=== PATIENT | female | born 1985 | race Caucasian/White ===

== ENCOUNTER 2020-09-22 23:23 | Inpatient (IN) | payer SELFPAY ==
--- NOTE | 2020-09-22 23:31 | W.ED.PSYCH ---
HPI - Psych General: Stated Complaint: ETOH Time Seen by Provider: 09/22/20 23:25 Source: patient Mode of arrival: ambulatory Limitations: no limitations History of Present Illness: HPI Narrative: 35-year-old female is brought in by police for suicidal ideation. Patient was pulled over tonight driving drunk and she did have her kids in the vehicle as well. While police was booking her she became very agitated and was throwing chairs she also stated multiple times she want to kill her self and she told the senior cytotechnologist that she wanted her to shoot her. Patient states that she did make the statements and she is suicidal. No previous suicidal attempts in the past. She denies any recent drug use. Associated symptoms: Reports suicidal ideation Review of Systems Const: Denies: fever(s), chills, body aches or change in appetite Eyes: Denies: blurry vision or eye discomfort ENMT: Denies: throat pain or dental pain Card: Denies: chest pain Resp: Denies: dyspnea GI: Denies: abdominal pain, nausea, vomiting or diarrhea : Denies: dysuria Musc: Denies: neck pain or back pain Skin/Breast: Denies: rash Neuro: Denies: headache(s) Psych: Reports: anxiety and suicidal ideation Kevin/Lymph: Denies: easy bruising All/Imm: Denies: urticaria Physical Exam Const: COMMON NORMALS: no acute distress, patient oriented x3 and healthy appearing HENMT: COMMON NORMALS: normocephalic and atraumatic HEAD & SCALP: normocephalic and atraumatic Eye: COMMON NORMALS: Equal, round and reactive pupils present and EOMs intact bilaterally PUPIL: Yes Equal, round and reactive pupils present Neck/C-Spine: COMMON NORMALS: full ROM and supple Chest: COMMONS NORMALS: normal inspection of the chest and normal palpation of entire chest wall Resp: COMMON NORMALS: normal respiratory effort, No retractions, No use of accessory muscles and clear to auscultation bilaterally AUSCULTATION: clear to auscultation bilaterally Cardio: COMMON NORMALS: regular rate, regular rhythm and No murmurs present (Cardio) RATE: regular rate RHYTHM: regular rhythm GI: COMMON NORMALS: Normal to inspection, nondistended, normoactive bowel sounds present, Soft to palpation, non-tender and no masses PALPATION: Yes Soft to palpation Extremity: COMMON NORMALS: normal to inspection and full ROM Neuro: COMMON NORMALS: patient oriented x3, moves all extremities and no focal motor deficits Psych: COMMON NORMALS: mental status grossly normal, Normal thought process present and cooperative THOUGHT PROCESS: Normal thought process present THOUGHT CONTENT: Yes Suicidality present Skin: COMMON NORMALS: no rashes or lesions noted and no wounds GENERAL SKIN EXAM: no rashes or lesions noted MDM - Psych MDM Narrative: Medical decision making narrative: Patient presents here with suicidal ideation and placed under 96-hour hold. She also admits intoxicated. Patient's blood work here is normal and she is medically cleared I spoke to psychiatrist who will admit. Lab Data: Labs: Lab Results 09/23/20 09/23/20 Range/Units 00:15 00:15 WBC 12.5 H (4.0-10.0) 10^3/ uL RBC 5.00 (4.1-5.3) 10^6/u L Hgb 16.5 H (11.5-15.3) g/dL Hct 48.9 H (37.0-47.0) % MCV 97.8 (81-99) fL MCH 33.0 (28.0-34.0) pg MCHC 33.7 (30.0-36.0) g/dL RDW 13.4 (12.1-15.1) % Plt Count 269 (130-400) 10^3/c mm MPV 9.7 (7.4-10.4) fL Neut % (Auto) 57.8 % Lymph % (Auto) 34.6 % Menard % (Auto) 5.4 % Eos % (Auto) 1.3 % Baso % (Auto) 0.6 % Neut # (Auto) 7.21 (1.8-7.7) 10^3/u L Lymph # (Auto) 4.3 (0.8-4.8) 10^3/u L Menard # (Auto) 0.7 (0.2-0.9) 10^3/u L Eos # (Auto) 0.2 (0.0-0.8) 10^3/u L Baso # (Auto) 0.1 (0.0-0.1) 10^3/u L Nucleated RBC % (a uto) 0 % Nucleated RBCs # 0.0 /100WBC Sodium 142 (136-145) mmol/L Potassium 4.0 (3.5-5.1) mmol/L Chloride 107 (98-107) mmol/L Carbon Dioxide 19 L (22-29) mmol/L Anion Gap 20.0 H (5-19) BUN 8 (6-20) mg/dL Creatinine 0.5 (0.5-0.9) mg/dL GFR Calculation 140.4 H (90-130) mL/min Glucose 106 (65-115) mg/dL Calculated Osmolal ity 293 (285-295) mOsm/k g Calcium 8.6 (8.5-10.5) mg/dL Total Bilirubin 0.2 (0.15-1.2) mg/dL AST 16 (0-32) U/L ALT 10 (0-33) U/L Alkaline Phosphata se 83 (35-105) IU/L Total Protein 7.5 (6.6-8.7) g/dL Albumin 4.9 (3.5-5.2) g/dL Globulin 2.6 (1.3-4.6) g/dL Salicylates < 0.3 L (3-10) mg/dL Acetaminophen < 5.0 L (10-30) ug/mL Ethyl Alcohol 194 H (0-10) mg/dL Discharge Plan Discharge Patient Disposition: Admitted As Inpatient Clinical Impression: Suicidal ideation, Alcohol intoxication Condition: Stable Coding Level of Care Code ED Manager [employer] for Lesly Fwd Exam Comprehensive
[2020-09-23 00:26] LABS: Basophils # 0.1 10^3/uL (0.0-0.1); Basophils % 0.6 %; Eosinophils # 0.2 10^3/uL (0.0-0.8); Eosinophils % 1.3 %; Hematocrit 48.9 % (37.0-47.0); Hemoglobin 16.5 g/dL (11.5-15.3); Lymphocytes # 4.3 10^3/uL (0.8-4.8); Lymphocytes % 34.6 %; Mean Corpuscular HGB Conc 33.7 g/dL (30.0-36.0); Mean Corpuscular Volume 97.8 fL (81-99); Mean Platelet Volume 9.7 fL (7.4-10.4); Monocytes # 0.7 10^3/uL (0.2-0.9); Monocytes % 5.4 %; Neutrophils # 7.21 10^3/uL (1.8-7.7); Neutrophils % 57.8 %; Nucleated Red Blood Cells % 0 %; Platelet Count 269 10^3/cmm (130-400); Red Cell Distribution Width 13.4 % (12.1-15.1); White Blood Count 12.5 10^3/uL (4.0-10.0)
[2020-09-23 00:41] LABS: Alanine Aminotransferase 10 U/L (0-33); Albumin Level 4.9 g/dL (3.5-5.2); Alcohol Level 194 mg/dL (0-10); Alkaline Phosphatase 83 IU/L (35-105); Aspartate Amino Transferase 16 U/L (0-32); Blood Urea Nitrogen 8 mg/dL (6-20); Calcium 8.6 mg/dL (8.5-10.5); Carbon Dioxide 19 mmol/L (22-29); Chloride 107 mmol/L (98-107); Globulin 2.6 g/dL (1.3-4.6); Glomerular Filtration Rate 140.4 mL/min (90-130); Glucose 106 mg/dL (65-115); Osmolality Calculated 293 mOsm/kg (285-295); Sodium 142 mmol/L (136-145); Total Bilirubin 0.2 mg/dL (0.15-1.2); Total Protein 7.5 g/dL (6.6-8.7)
[2020-09-23 00:42] LABS: Acetaminophen < 5.0 ug/mL (10-30); Salicylate < 0.3 mg/dL (3-10)
[2020-09-23 00:51] VITALS: BP 100/67; PULSE 76; RESP 16; TEMP 36.6; O2SAT 98; BMI 20.1
[2020-09-23 01:28] LABS: HCG Qualitative Urine. Negative (Negative)
[2020-09-23 01:46] VITALS: BP 100/67; PULSE 76; RESP 16; TEMP 36.6; O2SAT 98
[2020-09-23 02:07] LABS: Amphetamines Screen Urine Negative (Negative); Barbiturates Screen Urine Negative (Negative); Benzodiazepines Screen Urine Negative (Negative); Cocaine Screen Urine Negative (Negative); Opiate Screen Urine Negative (Negative); PCP Screen Urine Negative (Negative); THC Screen Urine Positive (Negative)
--- NOTE | 2020-09-23 05:07 | PC.NURSE ---
35/F Bal 194/ DOA THC+ v/s are WNL, pt denies HI, Endorses SI-no plan, Depressed, Tearful, Denies AH/VH, states, ?I was drinking.? Heart and Lung Sounds are normal,. Denies pain. Per Officer report, pt was driving drunk at [facility] in [place], [place] with her child in the car. She was cited receiving a DWI at scene and charged with endangering her child. The child was removed from her care on scene, and patient was taken to the residential. Pt became depressed, said she wanted to be shot by the officer, that ?her life was over?, pt stated to officer, if I released her that she ?would kill herself since she lost her kids to stated custody,? and then was witnessed running her head into the concrete tucker in an attempt to harm herself. Pt became angry and began to act out in the residential by throwing chairs. Pt has a hx of Bipolar disorder, anxiety, non-compliant with medication, with alcohol abuse history. Pt arrived at the ED, refused to answer questions for the staff, and was placed on 96 hr hold. Pt was quiet, tearful, depressed, and angry on arrival. She refused to sign her admission paperwork, curled up on the bed, stated ?my life is over, I?m fucked. I went to go get milk for my kids. I knew I should not have driven, omg, I?m so fucking stupid, I have lost everything. Go ahead, keep me forever, I won?t do this again.? Staff attempted to de-escalated the patient, pt continued to cry, explaining to staff, ?I lost my kids to state before and I will never get them back.? She has a son who turns 10 years old on 09/25/20 and a daughter age 13. Her children?s father is in treatment program in [facility], some ?kind of ministry.? Pt is refusing to sign admission paperwork, discuss any options to be pro-active in her care, and is resistant to any interaction with staff. Pt would benefit from social work intervention.
[2020-09-23 06:00] VITALS: BP 103/75; PULSE 60; RESP 19; TEMP 36.6; O2SAT 98
[2020-09-23] MEDS: folic acid 1 mg Tablet PO (08:56)
[2020-09-23] MEDS: multivitamin therapeutic Tablet 1 TAB PO (08:56)
[2020-09-23] MEDS: thiamine 100 mg Tablet PO (08:56)
--- NOTE | 2020-09-23 12:16 | XR_ITS ---
WS: [id number] Right wrist, 3 views, 09/23/2020 Clinical Data: swelling from handcuffs, previous hardware Comparison: None. Findings: No new fractures or dislocations are seen. The carpal bones are intact. There is no soft tissue swell ing. There is a ventral plate applied to the distal right radius with multiple orthopedic screws redu cing an old distal radial fracture. There is an unfused right ulnar styloid fracture. XR/XR wrist RT min 3V* [id number] Impression: Negative for acute change of the right wrist.
--- NOTE | 2020-09-23 12:17 | PM.NHP ---
Providers/Chief Complaint Admitting Physician: Doreen Sorto DO Chief Complaint: ETOH HPI NPU History of Present Illness Camila Muir is a 35 year old female with a remote history of anxiety although reports lifelong excessive worry and difficulty controlling her worrying presented to the emergency department with alcohol intoxication by police after DUI in which she had a child in the car and reported CPS intervention. Patient presented to the emergency department with suicidal ideation. Patient states that she recalls going to detention as well as coming to the hospital but did not recall events to include saying that she was suicidal. Patient currently denying any suicidal ideation and denying any depressive symptoms but reports intermittent mood symptoms in the context of multiple ongoing life stressors to include her recently entering substance treatment. Patient does report ongoing excessive worry and difficulty controlling her worrying to include racing thoughts which is alleviated by alcohol use. Patient reports that yesterday was the first alcohol use in a week but states that she had been drinking on a daily basis for approximately a month a month ago secondary to ongoing home stressors. She denies any past or recent hypomanic or manic episodes. She denies any past or recent psychotic symptoms. Patient reports intermittent use of marijuana when she can afford it but states that she does not use on a regular basis and denies use of any other illicit drugs. Psychiatric review of systems is otherwise negative. Patient reports additional stressors of being single parent while her is at treatment. Review of Systems General: Reports: 10 or more systems reviewed and unremarkable except in HPI and below Meds NPU Home Medications Medication Instructions Recorded Confirmed Last Taken Type No Known Home Medications 09/23/20 09/23/20 Unknown History Allergies Allergy/AdvReac Type Severity Reaction Status Date / Time No Known Allergies Allergy Verified 09/23/20 05:09 PFS NPU PFSH: Social History Alcohol intake: current Alcohol type: hard liquor Desire information about alcohol rehabilitation?: No Counseling given: Yes (resistant ) Last alcohol use date: 09/22/20 Other details last alcohol use: DWI, drove with child in car-CPS removed child Substance/Drug Use: current Substance/Drug use type: Marijuana Desire information about substance/drug rehabilitation?: No Counseling given: No (resistant) Adopted: No Lives independently: Yes Household members: significant other and children Marital status: Life Partner (sig. other in treatment program) Number of children: 2 (son age 10 and daugher age 13) Highest education level completed: High School Graduate service: No Current occupational status: employed Current occupation: works at a resort Current occupational exposures/hazards: No Pets and animals: No History of recent travel: No Current gender identity: Female Special rosemary needs: No Agree to transfusion: Yes Financial difficulty paying for basics: Very Hard Additional social history: Charged with DWI on 09/22/20 by [facility], driving intoxicated with her child in car, CPS intervention, charged with endangerment, child in state care. Pt is SI, Hx of Bipolar Disorder, alcohol use, and non-compliance with medication. Other Psychiatric History: Other Psychiatric History: Per above, remote history of mental health treatment around the age of 11 and states that she was seen on a couple of other occasions by primary care during her teens and briefly treated with Xanax for anxiety Denies any past psychiatric hospitalizations Denies any history of suicide attempts or self-harm behavior Mental Status Exam MSE Comments: Appears older than stated age, initially lying down but eventually sits up for interview, calm, cooperative, interactive, polite, good eye contact, appropriately groomed and dressed wearing hospital scrubs Psychomotor activity is somewhat decreased, no agitation Speech is soft volume, normal rate, spontaneous, clear articulation, not pressured I feel upset and stressed, congruent affect, constricted, not labile Alert and oriented to person, place, time Memory and concentration are fair for recent events, good for remote events per interview Intellectual functioning appears to be average based on vocabulary, interview Thought process, linear, no flight of ideas, no looseness of associations Thought content, no delusions, no hallucinations, no suicidal or homicidal ideation Insight and judgment appear to be fair Vitals/I&O/Wt Last Vital Signs Temp 97.9 F 09/23/20 06:00 Pulse 60 09/23/20 06:00 Resp 19 H 09/23/20 06:00 BP 103/75 09/23/20 06:00 Pulse Ox 98 09/23/20 06:00 Weight last 48 hrs Weight 56.699 kg Data NPU : 09/23/20 00:15 09/23/20 00:15 A&P Assessment and plan (1) Suicidal ideation: Status: Acute (2) Alcohol intoxication: Status: Acute Qualifiers: Complication of substance-induced condition: uncomplicated Qualified Code(s): F10.920 - Alcohol use, unspecified with intoxication, uncomplicated (3) Anxiety disorder: Status: Acute Qualifiers: Anxiety disorder type: unspecified anxiety disorder Qualified Code(s): F41.9 - Anxiety disorder, unspecified Additional A&P Information Patient presented to the hospital with DUI with child in her car reporting that she was suicidal at the time that she had gone to detention with subsequent trip to the emergency department with continued endorsement of suicidal ideation currently denying any suicidal ideation and denies any recent depressed symptoms although reports intermittent mood symptoms related to ongoing stressors to include leaving to go to treatment recently. Patient with daily alcohol use and reported anxiety symptoms with no treatment for approximately 20+ years. INVOLUNTARY ADMIT to inpatient psychiatry START citalopram 20 mg daily targeting anxiety symptoms 3 view x-ray of right wrist Encouraged patient to participate in unit activities to include group sessions, unit milieu Coordinate with social media marketing analyst for post discharge mental health care follow-up to include substance counseling/treatment for ongoing alcohol use Involuntary Hold Information 96 Hour Hold: 96 Hour Involuntary Admission: Yes 96 Hour Hold Ending Date: 09/28/20 96 Hour Hold Ending Time: 23:54 Attestations NPU Medical Necessity Statement*: Psychiatric hospitalization indicated for medication stabilization, coordination for safe discharge Anticipate hospital stay to exceed 2 midnights Time Spent in Patient Care: Greater than 35 minutes (>than 50% of time spent in counselling and/or direct pt care on unit). Coding Level of Care Code Acute Bacteriologist Pharmaceutical for Lesly Schmidt Diagnoses Suicidal ideation R45.851 Alcohol intoxication F10.920 Complication of substance-induced condition: uncomplicated Anxiety disorder F41.9 Anxiety disorder type: unspecified anxiety disorder
[2020-09-23] MEDS: citalopram 20 mg Tablet PO (12:27)
[2020-09-23 14:00] VITALS: BP 105/70; PULSE 60; RESP 16; TEMP 36.6; O2SAT 98
[2020-09-23 21:38] VITALS: BP 112/71; PULSE 85; RESP 16; TEMP 36.9; O2SAT 98
[2020-09-24 06:00] VITALS: BP 90/51; PULSE 75; RESP 17; TEMP 36.6; O2SAT 98
[2020-09-24] MEDS: citalopram 20 mg Tablet PO (08:44)
[2020-09-24] MEDS: folic acid 1 mg Tablet PO (08:44)
[2020-09-24] MEDS: thiamine 100 mg Tablet PO (08:44)
[2020-09-24] MEDS: multivitamin therapeutic Tablet 1 TAB PO (08:44)
[2020-09-24 14:00] VITALS: BP 127/88; PULSE 80; RESP 14; TEMP 37.9; O2SAT 96
--- NOTE | 2020-09-24 14:27 | PM.NPN ---
Subjective NPU Subjective: Interval history: Reports some depressive symptoms which is exacerbated by ongoing stressors Denies any interval suicidal ideation Denies any interval psychotic symptoms Reports some stress related anxiety Denies any interval withdrawal symptoms Reports being compliant with medication, denies any medication side effects Mental Status Exam MSE Comments: Sitting up in her bed, appropriately groomed and dressed wearing scrubs, calm, cooperative, good eye contact Psychomotor activity is somewhat decreased, no agitation Speech is soft volume, normal rate, spontaneous, clear articulation, not pressured I feel okay, congruent affect, constricted, not labile Alert and oriented to person, place, time Memory and concentration are fair to intact per interview Thought process, linear, no flight of ideas, no looseness of associations Thought content, no delusions, no hallucinations, no suicidal or homicidal ideation Insight and judgment appear to be fair Vitals/I&O/Wt Last Vital Signs Temp 97.9 F 09/24/20 06:00 Pulse 75 09/24/20 06:00 Resp 17 09/24/20 06:00 BP 90/51 09/24/20 06:00 Pulse Ox 98 09/24/20 06:00 Weight last 48 hrs Weight 56.699 kg Data NPU : 09/23/20 00:15 09/23/20 00:15 A&P Assessment and plan (1) Suicidal ideation: Status: Acute (2) Anxiety disorder: Status: Acute Qualifiers: Anxiety disorder type: unspecified anxiety disorder Qualified Code(s): F41.9 - Anxiety disorder, unspecified (3) Alcohol intoxication: Status: Acute Qualifiers: Complication of substance-induced condition: uncomplicated Qualified Code(s): F10.920 - Alcohol use, unspecified with intoxication, uncomplicated Additional A&P Information Intermittent mood symptoms, no interval alcohol withdrawal symptoms CONTINUE current medication, continue to monitor Continue coordination with social research assistant for post discharge alcohol counseling/treatment Involuntary Hold Information 96 Hour Hold: 96 Hour Involuntary Admission: Yes 96 Hour Hold Ending Date: 09/28/20 96 Hour Hold Ending Time: 23:54 Attestations NPU Medical Necessity Statement*: Continues to require psychiatric hospitalization for medication stabilization Coding Level of Care Code Acute Mental Health Associate for [facility] Fwjo Diagnoses Suicidal ideation R45.851 Anxiety disorder F41.9 Anxiety disorder type: unspecified anxiety disorder Alcohol intoxication F10.920 Complication of substance-induced condition: uncomplicated
[2020-09-24 22:00] VITALS: BP 130/72; PULSE 79; RESP 18; TEMP 37; O2SAT 96
[2020-09-25 06:00] VITALS: BP 128/76; PULSE 86; RESP 16; TEMP 36.6; O2SAT 97
[2020-09-25] MEDS: multivitamin therapeutic Tablet 1 TAB PO (08:50)
[2020-09-25] MEDS: citalopram 20 mg Tablet PO (08:50)
[2020-09-25] MEDS: thiamine 100 mg Tablet PO (08:50)
[2020-09-25] MEDS: folic acid 1 mg Tablet PO (08:50)
--- NOTE | 2020-09-25 10:13 | P.DS_ITS ---
Diagnoses at Discharge Discharge Diagnosis (1) Suicidal ideation: Status: Acute (2) Anxiety disorder: Status: Acute Qualifiers: Anxiety disorder type: unspecified anxiety disorder Qualified Code(s): F41.9 - Anxiety disorder, unspecified (3) Alcohol intoxication: Status: Acute Qualifiers: Complication of substance-induced condition: uncomplicated Qualified Code(s): F10.920 - Alcohol use, unspecified with intoxication, uncomplicated Reason for Visit Reason for Visit: ETOH Hospital Course Hospital Course 35 year old female with a remote history of anxiety although reports lifelong excessive worry and difficulty controlling her worrying presented to the emergency department with alcohol intoxication by police after DUI in which she had a child in the car and reported CPS intervention. Patient presented to the emergency department with suicidal ideation. Patient states that she recalls going to halfway as well as coming to the hospital but did not recall events to include saying that she was suicidal. Patient was denying any alcohol withdrawal symptoms but was placed on a [facility] protocol for precautions which was subsequently discontinued. Patient was denying any suicidal ideation or depressive symptoms at the time of initial evaluation and states that she was feeling suicidal while she was intoxicated because she knew that her children would be taken away from her. Patient also reported subsequent stressors of reports of people stealing things from her home while in the hospital. Patient reports that she has had elevated anxiety for some time which has been exacerbated by multiple ongoing life stressors. Patient states that she had been drinking alcohol on a daily basis for quite some time and states that she knows that she needs to have treatment but also knows that she needs to continue working in order to support herself and children while her is away at a year long substance and alcohol treatment program. Patient was started on citalopram 20 mg which she tolerated well with no reports of any medication side effects. Patient participate in unit milieu with no reports of any behavioral disturbances. Patient was provided resources for outpatient substance and alcohol treatment by the clinical social worker with coordination for following treatment. Patient was not suicidal and was not endorsing any depressive symptoms at the time of discharge and did not appear to pose an imminent threat of harm to self or others. Low to moderate risk of harm to self given no current suicidal ideation and no current endorsement of psychiatric symptoms although she continues to abuse alcohol or use substances she may be at an elevated risk for unexpected, impulsive behavior. Risk mitigation included psychiatric hospitalization for observation for any persisting suicidal ideation or behaviors, medication stabilization, recommendation to abstain from use of alcohol or any substances as well as need for compliance with her medication, medication management and follow-up on alcohol/substance counseling/treatment. Patient was able to communicate her understanding of the need to abstain from the use of alcohol and substances as well as the need for compliance with her medication, medication management and substance counseling/treatment in order to further mitigate her risk of harm to self and others. Involuntary Hold Information 96 Hour Hold: 96 Hour Involuntary Admission: Yes 96 Hour Hold Ending Date: 09/28/20 96 Hour Hold Ending Time: 23:54 Mental Status Exam MSE Comments: Sitting in the day room, calm, cooperative, interactive, appropriately groomed and dressed wearing scrubs, good eye contact Psychomotor activity is neither increased nor decreased, no agitation Speech is normal volume, normal rate, spontaneous, clear articulation, not pressured I feel much better, congruent affect, smiles appropriately at times during interview, not labile Alert and oriented to person, place, time Memory and concentration are fair to intact per interview Thought process, linear, no flight of ideas, no looseness of associations Thought content, no delusions, no hallucinations, no suicidal or homicidal ideation Insight and judgment appear to be intact Discharge Data Data Completed and Pending: Completed Studies During Hospitalization Category Date Time Status XR wrist RT min 3 V* [id number] Routine Exams 09/23/20 12:16 Completed Vitals: Last Vital Signs Temp 97.8 F 09/25/20 06:00 Pulse 86 09/25/20 06:00 Resp 16 09/25/20 06:00 BP 128/76 09/25/20 06:00 Pulse Ox 97 09/25/20 06:00 Discharge Plan Discharge Patient Disposition: Home Condition: Stable Prescriptions: New thiamine mononitrate (vit B1) [Vitamin B-1 (mononitrate)] 100 mg Tablet 100 mg PO DAILY Qty: 30 RF: 0 citalopram 20 mg Tablet 20 mg PO DAILY Qty: 30 RF: 0 No Action No Known Home Medications RF: 0 Discharge Orders: Discharge Order (Routine); Ordered 09/25/20 Ordered By: Doreen Sorto Referrals: [facility] [Outside] (Walk In is between 7:30 AM and 3:00 PM) [facility] [Outside] (Please Call every Sunday to see where you are on the waiting list for outpatient treatment) Discharge Diet: Regular Discharge Activity: Resume usual activity Patient Instructions: Opioid Safety Discharge Attestations NPU Time Spent in Discharge Care*: greater than 30 min Status at Discharge: Cognitive status at discharge: cognitively intact , Behavioral status at discharge: cooperative , Functional status at discharge: independent ambulation Overall status at discharge: patient is back to baseline Coding Level of Care Code Acute Chg FW DC note Diagnoses Suicidal ideation R45.851 Anxiety disorder F41.9 Anxiety disorder type: unspecified anxiety disorder Alcohol intoxication F10.920 Complication of substance-induced condition: uncomplicated
[2020-09-25 10:40] VITALS: BP 128/76; PULSE 86; RESP 16; TEMP 36.6; O2SAT 97
[2020-09-25 10:42] VITALS: BP 128/76; PULSE 86; RESP 16; TEMP 36.6; O2SAT 97
== END 2020-09-25 13:53 | disposition home or self-care (01) | DRG 897 ==
LOC: ER 09-23 00:53 → NP 09-23 01:04
PROVIDERS: Admitting Provider Psychiatry & Neurology Psychiatry; Emergency Provider Emergency Medicine; Visit Provider Psychiatry & Neurology Psychiatry
DX: F10.120 Alcohol abuse with intoxication, uncomplicated (principal); R45.851 Suicidal ideations; F41.9 Anxiety disorder, unspecified; F12.90 Cannabis use, unspecified, uncomplicated
CPT/HCPCS: 73110; 80053; 80306; 80307; 81025; 85025; 99285